=== PATIENT | male | born 1960 | race Asian ===

== ENCOUNTER 2018-08-14 10:00 | Inpatient (IN) | payer OTHER, MEDICARE ==
[~2018-08-14] VITALS: Ht 162.6 cm; Wt 77.0 kg
[2018-08-14] MEDS ORDERED: ASPIRIN 325 MG TABLET PO ONE (10:35)
[2018-08-14] MEDS ORDERED: MIDAZOLAM 1 MG/ML, 5ML ONE (10:43)
[2018-08-14] MEDS ORDERED: VERAPAMIL 2.5 MG/ML, 2ML ONE (10:43)
[2018-08-14] MEDS ORDERED: BIVALIRUDIN 250 MG ONE (10:43)
[2018-08-14] MEDS ORDERED: TICAGRELOR 90 MG TABLET ONE (10:43)
[2018-08-14] MEDS ORDERED: NITROGLYCERIN 5 MG/ML, 10ML ONE (10:43)
[2018-08-14] MEDS ORDERED: FENTANYL PF 100 MCG/2ML ONE (10:43)
[2018-08-14] MEDS ORDERED: HEPARIN 1,000 UNITS/ML, 10ML ONE (10:44)
[2018-08-14] MEDS ORDERED: LIDOCAINE/PF 1%, 30ML ONE (10:44)
[2018-08-14 10:46] LABS: BASOPHILS # (AUTO) 0.07 x10^3/uL (0-0.1); BASOPHILS % (AUTO) 1 % (0-1); EOSINOPHILS # (AUTO) 0.01 x10^3/uL (0-0.4); EOSINOPHILS % (AUTO) 0 % (1-7); LYMPHOCYTES # (AUTO) 1.86 x10^3/uL (1-3.4); LYMPHOCYTES % (AUTO) 13 % (22-44); MD NO; MEAN CORPUSCULAR HEMOGLOBIN 28.4 pg (27.5-34.5); MEAN CORPUSCULAR HGB CONC 34.1 g/dL (33.2-36.2); MEAN CORPUSCULAR VOLUME 83.3 fL (81-97); MEAN PLATELET VOLUME 7.6 fL (7.4-10.4); MONOCYTES # (AUTO) 0.66 x10^3/uL (0.2-0.8); MONOCYTES % (AUTO) 5 % (2-9); NEUTROPHILS # (AUTO) 11.26 x10^3/uL (1.8-6.8); NEUTROPHILS % (AUTO) 81 % (42-75); PLATELET COUNT 301 x10^3/uL (130-400); RED BLOOD COUNT 5.56 x10^6/uL (4.38-5.82); RED CELL DISTRIBUTION WIDTH 13.3 % (9.4-14.8)
[2018-08-14] MEDS ORDERED: PRASUGREL 10 MG TABLET ONE (10:57)
[2018-08-14] MEDS ORDERED: ASPIRIN 81 MG TABLET CHEW ONE (11:05)
[2018-08-14] MEDS: SODIUM CHLORIDE 0.9% 1,000 ML IV SCH ×2 (11:43→17:03)
[2018-08-14] MEDS ORDERED: BIVALIRUDIN 250 MG in DEXTROSE 5% 50 ML IV SCH (11:43)
[2018-08-14] MEDS ORDERED: morphine SULFATE 10 MG/ML, 1ML IVPush PRN (12:00)
[2018-08-14] MEDS ORDERED: ACETAMINOPHEN 325 MG TABLET PO PRN (12:00)
[2018-08-14] MEDS ORDERED: ONDANSETRON 2MG/ML, 2ML IVPush PRN (12:00)
[2018-08-14] MEDS ORDERED: ZOLPIDEM 5MG TABLET PO PRN (12:00)
[2018-08-14] MEDS ORDERED: NITROGLYCERIN 0.4 MG BOTTLE (25 TABS) SL PRN (12:00)
[2018-08-14 12:29] LABS: INTERNATIONAL NORMALIZED RATIO 1.02 (0.93-1.1); PROTHROMBIN TIME 10.6 Seconds (9.6-11.5)
[2018-08-14] MEDS ORDERED: hydrALAzine 20 MG/ML, 1ML IVPush PRN (14:00)
[2018-08-14] MEDS ORDERED: LABETALOL 5MG/ML, 20ML IVPush PRN (14:00)
[2018-08-14] MEDS: INSULIN LISPRO 100 UNITS/ML, PEN SQ-INSULIN SCH ×2 (16:55→21:22)
[2018-08-14] MEDS: METOPROLOL TARTRATE 25 MG TABLET PO SCH (21:21)
[2018-08-14] MEDS: ATORVASTATIN 80 MG TABLET PO SCH (21:21)
[2018-08-15] MEDS: SODIUM CHLORIDE 0.9% 1,000 ML IV SCH ×2 (01:24→08:46)
[2018-08-15 04:30] VITALS: BP 108/67
[2018-08-15 04:49] LABS: BASOPHILS # (AUTO) 0.03 x10^3/uL (0-0.1); BASOPHILS % (AUTO) 0 % (0-1); EOSINOPHILS # (AUTO) 0.01 x10^3/uL (0-0.4); EOSINOPHILS % (AUTO) 0 % (1-7); LYMPHOCYTES # (AUTO) 2.49 x10^3/uL (1-3.4); LYMPHOCYTES % (AUTO) 22 % (22-44); MD NO; MEAN CORPUSCULAR HGB CONC 33.5 g/dL (33.2-36.2); MEAN CORPUSCULAR VOLUME 83.4 fL (81-97); MEAN PLATELET VOLUME 7.5 fL (7.4-10.4); MONOCYTES # (AUTO) 1.03 x10^3/uL (0.2-0.8); MONOCYTES % (AUTO) 9 % (2-9); NEUTROPHILS # (AUTO) 7.68 x10^3/uL (1.8-6.8); NEUTROPHILS % (AUTO) 68 % (42-75); PLATELET COUNT 248 x10^3/uL (130-400); RED BLOOD COUNT 4.81 x10^6/uL (4.38-5.82); RED CELL DISTRIBUTION WIDTH 13.4 % (9.4-14.8)
[2018-08-15 04:51] LABS: ALANINE AMINOTRANSFERASE 56 U/L (12-78); ALBUMIN 3.1 g/dL (3.4-5.0); ANION GAP 8 mmol/L (5-15); CALCIUM 7.9 mg/dL (8.5-10.1); CHLORIDE 109 mmol/L (98-107); CREATININE 1.09 mg/dL (0.7-1.3)
[2018-08-15 04:54] LABS: HEMOGLOBIN A1C 6.9 % (4.2-6.3)
[2018-08-15 04:55] LABS: ALKALINE PHOSPHATASE 50 U/L (45-117); BILIRUBIN,TOTAL 1.4 mg/dL (0.2-1.0); CHOL/HDL RATIO 2.3; CHOLESTEROL, TOTAL 95 mg/dL (140-239); HDL CHOL % 44 % (26-37); HDL CHOLESTEROL (DIRECT) 42 mg/dL (40-60); LDL CHOLESTEROL,CALCULATED 33 mg/dL (54-169); LDL/HDL RATIO 0.8 (0.5-3.0); TOTAL PROTEIN 6.7 g/dL (6.4-8.2); TRIGLYCERIDES 98 mg/dL (50-200); VLDL CHOLESTEROL 20 mg/dL (0-25)
[2018-08-15] MEDS: INSULIN LISPRO 100 UNITS/ML, PEN SQ-INSULIN SCH ×4 (07:00→21:12)
[2018-08-15] MEDS ORDERED: PANTOPRAZOLE 40 MG IV IVPush SCH (07:30)
[2018-08-15] MEDS: METOPROLOL TARTRATE 25 MG TABLET PO SCH ×2 (08:45→21:11)
[2018-08-15] MEDS: PRASUGREL 10 MG TABLET PO SCH (08:45)
[2018-08-15] MEDS: PANTOPROZOLE 40MG TABLET PO SCH (08:45)
[2018-08-15] MEDS: ASPIRIN 81 MG TABLET EC PO SCH (08:46)
[2018-08-15] MEDS ORDERED: NPH,100V SQ (11:02)
[2018-08-15] MEDS ORDERED: DICL150D4 EACHEYE (11:02)
[2018-08-15] MEDS ORDERED: SIMV20TA3 PO (11:02)
[2018-08-15] MEDS ORDERED: PRED1DRO EACHEYE (11:02)
[2018-08-15] MEDS ORDERED: POLY10DR EACHEYE (11:02)
[2018-08-15] MEDS ORDERED: GLIP5TAB10 PO (11:02)
[2018-08-15] MEDS ORDERED: METF500T9 PO (11:02)
[2018-08-15] MEDS: ATORVASTATIN 80 MG TABLET PO SCH (21:11)
[2018-08-16 04:28] LABS: BASOPHILS % (AUTO) 1 % (0-1); EOSINOPHILS # (AUTO) 0.04 x10^3/uL (0-0.4); EOSINOPHILS % (AUTO) 0 % (1-7); LYMPHOCYTES # (AUTO) 3.05 x10^3/uL (1-3.4); LYMPHOCYTES % (AUTO) 27 % (22-44); MD NO; MEAN CORPUSCULAR HGB CONC 33.6 g/dL (33.2-36.2); MEAN CORPUSCULAR VOLUME 83.3 fL (81-97); MEAN PLATELET VOLUME 7.3 fL (7.4-10.4); MONOCYTES # (AUTO) 1.02 x10^3/uL (0.2-0.8); MONOCYTES % (AUTO) 9 % (2-9); NEUTROPHILS # (AUTO) 6.95 x10^3/uL (1.8-6.8); NEUTROPHILS % (AUTO) 62 % (42-75); PLATELET COUNT 257 x10^3/uL (130-400); RED BLOOD COUNT 5.13 x10^6/uL (4.38-5.82); RED CELL DISTRIBUTION WIDTH 13.1 % (9.4-14.8)
[2018-08-16 04:44] LABS: ALBUMIN 3.2 g/dL (3.4-5.0); ANION GAP 8 mmol/L (5-15); CALCIUM 8.2 mg/dL (8.5-10.1); CHLORIDE 104 mmol/L (98-107)
[2018-08-16 04:52] LABS: ALANINE AMINOTRANSFERASE 45 U/L (12-78); ALKALINE PHOSPHATASE 56 U/L (45-117); BILIRUBIN,TOTAL 1.3 mg/dL (0.2-1.0); CREATININE 1.04 mg/dL (0.7-1.3); TOTAL PROTEIN 7.1 g/dL (6.4-8.2)
[2018-08-16] MEDS: INSULIN LISPRO 100 UNITS/ML, PEN SQ-INSULIN SCH ×4 (07:43→19:58)
[2018-08-16] MEDS: PRASUGREL 10 MG TABLET PO SCH (07:43)
[2018-08-16] MEDS: PANTOPROZOLE 40MG TABLET PO SCH (07:43)
[2018-08-16] MEDS: METOPROLOL TARTRATE 25 MG TABLET PO SCH ×2 (07:43→19:46)
[2018-08-16] MEDS: ASPIRIN 81 MG TABLET EC PO SCH (07:44)
[2018-08-16] MEDS ORDERED: PNEUMOCOCCAL 23 VACCINE IM-VACC ONE ×2 (11:22→12:00)
[2018-08-16] MEDS: LISINOPRIL 5 MG TABLET PO SCH (12:07)
[2018-08-16 14:39] VITALS: BP 138/92
[2018-08-16] MEDS: DICLOFENAC SODIUM 0.1% EACHEYE SCH ×2 (19:00→21:00)
[2018-08-16 19:09] VITALS: BP 127/80
[2018-08-16] MEDS: predniSOLONE OPHTH. 1%,1ML EACHEYE SCH ×2 (19:43→21:00)
[2018-08-16] MEDS: ATORVASTATIN 80 MG TABLET PO SCH (19:44)
[2018-08-16] MEDS ORDERED: INSULIN NPH HUMAN 100 UNIT/ML, 3ML VIAL SQ-INSULIN SCH ×2 (21:00)
[2018-08-17 00:22] VITALS: BP 124/81
[2018-08-17 04:50] LABS: ANION GAP 9 mmol/L (5-15); CALCIUM 8.5 mg/dL (8.5-10.1); CHLORIDE 105 mmol/L (98-107); CREATININE 1.13 mg/dL (0.7-1.3)
[2018-08-17] MEDS: predniSOLONE OPHTH. 1%,1ML EACHEYE SCH (05:43)
[2018-08-17] MEDS: DICLOFENAC SODIUM 0.1% EACHEYE SCH (05:43)
[2018-08-17 06:35] VITALS: BP 128/87
[2018-08-17] MEDS: INSULIN LISPRO 100 UNITS/ML, PEN SQ-INSULIN SCH (07:00)
[2018-08-17] MEDS: METOPROLOL TARTRATE 25 MG TABLET PO SCH (08:09)
[2018-08-17] MEDS: PRASUGREL 10 MG TABLET PO SCH (08:09)
[2018-08-17] MEDS: ASPIRIN 81 MG TABLET EC PO SCH (08:09)
[2018-08-17] MEDS: LISINOPRIL 5 MG TABLET PO SCH (08:10)
[2018-08-17] MEDS: PANTOPROZOLE 40MG TABLET PO SCH (08:10)
[2018-08-17 08:15] VITALS: BP 138/91
[2018-08-17] MEDS ORDERED: ASPI-621 PO (08:45)
[2018-08-17] MEDS ORDERED: PRAS10TA4 PO (08:45)
[2018-08-17] MEDS ORDERED: METO25TA2 PO (08:45)
[2018-08-17] MEDS ORDERED: ATOR-2 PO (08:45)
[2018-08-17] MEDS ORDERED: LISI5TAB7 PO (08:45)
[2018-08-17] MEDS ORDERED: POLYTRIM OPHTH 10ML EACHEYE SCH (09:00)
== END 2018-08-17 11:03 | disposition home or self-care (01) | DRG 249 ==
LOC: ED 10:37 → EDIP 10:38 → ED 10:55 → CCU 11:36 → 5SO 08-16 11:57 → DCLOUNGE 08-17 10:41
PROVIDERS: ADMIT Internal Medicine; ATTEND Internal Medicine
PROC: 02703DZ Dilation of Coronary Artery, One Artery with Intraluminal Device, Percutaneous Approach (ICD-10-PCS; principal; 2018-08-14)
PROC: 02703ZZ Dilation of Coronary Artery, One Artery, Percutaneous Approach (ICD-10-PCS; 2018-08-14)
PROC: 4A023N7 Measurement of Cardiac Sampling and Pressure, Left Heart, Percutaneous Approach (ICD-10-PCS; 2018-08-14)
PROC: B2111ZZ Fluoroscopy of Multiple Coronary Arteries using Low Osmolar Contrast (ICD-10-PCS; 2018-08-14)
PROC: B2151ZZ Fluoroscopy of Left Heart using Low Osmolar Contrast (ICD-10-PCS; 2018-08-14)
DX: I21.19 ST elevation (STEMI) myocardial infarction involving other coronary artery of inferior wall (principal); E11.9 Type 2 diabetes mellitus without complications; I95.9 Hypotension, unspecified; E78.5 Hyperlipidemia, unspecified; I25.10 Atherosclerotic heart disease of native coronary artery without angina pectoris; H91.90 Unspecified hearing loss, unspecified ear; I25.5 Ischemic cardiomyopathy; Z87.891 Personal history of nicotine dependence; I50.9 Heart failure, unspecified; Z79.4 Long term (current) use of insulin; Z80.9 Family history of malignant neoplasm, unspecified; Z83.3 Family history of diabetes mellitus; Z90.49 Acquired absence of other specified parts of digestive tract
CPT/HCPCS: 36415; 71045; 80047; 80048; 80053; 80061; 82962; 83036; 83735; 84100; 84484; 85025; 85610; 85730; 87081; 90732; 93005; 93306; 93458; 99156; 99157; 99291; C1760; C1769; C1876; C1894; G0378; J0583; J1644; J2250; J3010; J3490; C1725; C1887; J1815; J7030; Q9967